=== PATIENT | female | born 1945 | race African-American/Black ===

== ENCOUNTER 2017-04-17 06:59 | Outpatient (CLI) | payer MEDICARE, BC | END 2017-04-17 07:00 | disposition home or self-care (01) | LOC: BICMRI 06:59 | PROVIDERS: ATTEND Family Medicine | DX: M54.31 Sciatica, right side (principal); M51.26 Other intervertebral disc displacement, lumbar region; M48.061 Spinal stenosis, lumbar region without neurogenic claudication | CPT/HCPCS: 72148 ==

== ENCOUNTER 2017-06-24 09:17 | Outpatient (CLI) | payer MEDICARE, BC ==
--- NOTE | 2017-06-24 10:25 | RAD ---
LUMBAR SPINE 3 VIEWS: Lateral views were obtained in neutral, flexion, and extension positions. FINDINGS: Lumbar vertebrae maintain height. There is loss of disk space at L4-5 and L5-S1. There is a mild gr rona I anterior spinal fusion at L4-5 Very mild osteophytes are seen from the lumbar vertebrae. Very mild facet hypertrophy. IMPRESSION: Loss of disk space at L4-5 and L5-S1 and a mild grade I anterolisthesis at L4-5 which does not appear to significantly change with flexion or extension. POS: CRISTO
== END 2017-06-24 09:18 | disposition home or self-care (01) ==
LOC: TBSIIMAG 09:17
PROVIDERS: ATTEND Surgery
DX: M54.5 Low back pain (principal); M54.16 Radiculopathy, lumbar region; M48.061 Spinal stenosis, lumbar region without neurogenic claudication; M43.16 Spondylolisthesis, lumbar region
CPT/HCPCS: 72100

== ENCOUNTER 2017-07-29 09:17 | Outpatient (CLI) | payer MEDICARE, BC | END 2017-07-29 09:18 | disposition home or self-care (01) | LOC: BICMAMMO 09:17 | PROVIDERS: ATTEND Family Medicine | DX: Z12.31 Encounter for screening mammogram for malignant neoplasm of breast (principal) | CPT/HCPCS: 77063; 77067 ==

== ENCOUNTER 2018-08-04 10:16 | Outpatient (CLI) | payer MEDICARE, BC ==
--- NOTE | 2018-08-04 13:22 | MMO ---
Bilateral MAMMO Bilat Screen [facility]. CLINICAL HISTORY: Patient is 73 years old and is seen for screening. The patient has no family history of breast cancer. The patient has no personal history of cancer. VIEWS: The views performed were: bilateral craniocaudal with tomosynthesis and bilateral mediolateral oblique with tomosynthesis. FILMS COMPARED: The present examination has been compared to prior imaging studies performed at [facility] on 06/01/1998, 06/03/1999, 06/07/2000, 06/27/2001, 07/16/2011, 07/16/2012, 07/17/2013, 07/20/2014, 07/25/2015, 07/26/2016 and 07/29/2017. MAMMOGRAM FINDINGS: There are scattered fibroglandular densities. There are stable benign appearing calcifications seen in both breasts. There are no suspicious masses, suspicious calcifications, or new areas of architectural distortion. IMPRESSION: THERE IS NO MAMMOGRAPHIC EVIDENCE OF MALIGNANCY. A ROUTINE FOLLOW-UP MAMMOGRAM IN 1 YEAR IS RECOMMENDED. THE RESULTS OF THIS EXAM WERE SENT TO THE PATIENT. ACR BI-RADS Category 2 - Benign finding MAMMOGRAPHY NOTE: 1. A negative mammogram report should not delay a biopsy if a dominant of clinically suspicious mass is present. 2. Approximately 10% to 15% of breast cancers are not detected by mammography. 3. Adenosis and dense breasts may obscure an underlying neoplasm.
== END 2018-08-04 10:17 | disposition home or self-care (01) ==
LOC: BICMAMMO 10:16
PROVIDERS: ATTEND Family Medicine
DX: Z12.31 Encounter for screening mammogram for malignant neoplasm of breast (principal)
CPT/HCPCS: 77063; 77067

== ENCOUNTER 2019-08-04 21:51 | Emergency (ER) | payer MEDICARE, BC, OTHER ==
--- NOTE | 2019-08-04 22:42 | RAD ---
PORTABLE CHEST: 08/04/19 PROVIDED CLINICAL HISTORY: Cough and bodyaches. Cardiac and mediastinal silhouette is within normal limits. No focal consolidation, pleural fluid, or pneumothorax apparent. IMPRESSION: No evidence for acute cardiopulmonary process. POS: SERA
[2019-08-04 23:04] LABS: Bilirubin Negative (Negative); Blood, Urine Negative (Negative); Clarity Clear (Clear); Glucose, Urine (Dipstick) Normal (Negative); Leukocyte 75 Leu/uL (Negative); Mucous/LPF Rare LPF (<2+); Nitrite Negative (Negative); Protein, Urine (Dipstick) 100 mg/dL (Neg-Trace); Squamous Epithelial 0-3 HPF (0-3)
[2019-08-04 23:06] LABS: #Lymphocytes 1.4 thou/uL (1.20-3.40); #Monocytes 0.6 thou/uL (0.11-0.59); #Neutrophils 6.3 thou/uL (1.40-6.50); %Basophils 0.3 % (0.0-1.0); %Eosinophils 0.2 % (0.0-10.0); %Lymphocytes 16.8 % (21.0-51.0); %Monocytes 7.4 % (0.0-10.0); %Neutrophils 75.3 % (42.0-75.0); Hemoglobin 16.4 g/dL (12.0-16.0); Mean Corpuscular HGB CONC 32.7 g/dL (32.0-36.0); Mean Corpuscular Hemoglobin 33.2 pg (27.0-31.0); Mean Platelet Volume 9.1 fL (7.4-10.4); Platelet Count 193 thou/uL (130-400); RBC Distribution Width 11.6 % (11.5-14.5); Red Blood Cell (RBC) Count 4.94 mill/uL (4.20-5.40); White Blood Cell (WBC) Count 8.3 thou/uL (4.8-10.8)
[2019-08-04 23:12] LABS: Bacteria/HPF Rare-Few HPF (None Seen)
[2019-08-04 23:26] LABS: ALT (SGPT) 63 U/L (8-55); AST (SGOT) 87 U/L (5-34); Albumin 3.3 g/dL (3.4-4.8); Alkaline Phosphatase 84 U/L (40-110); Anion Gap 16 mmol/L (10-20); BUN (Urea Nitrogen) 29 mg/dL (9.8-20.1); Bilirubin, Total 0.9 mg/dL (0.2-1.2); Calc. Creatinine Clearance 0 mL/min (70-130); Calcium 8.9 mg/dL (7.8-10.44); Carbon Dioxide 21 mmol/L (23-31); Chloride 102 mmol/L (98-107); Estimated GFR-MDRD 58; Globulin 3.9 g/dL (2.4-3.5); Glucose 169 mg/dL (83-110); Lipase 22 U/L (8-78); Potassium 4.7 mmol/L (3.5-5.1); Protein, Total 7.2 g/dL (6.0-8.3); Sodium 134 mmol/L (136-145)
== END 2019-08-05 00:35 | disposition home or self-care (01) ==
LOC: ERS 21:51
DX: J06.9 Acute upper respiratory infection, unspecified (principal); Z03.818 Encounter for observation for suspected exposure to other biological agents ruled out; N39.0 Urinary tract infection, site not specified; E10.9 Type 1 diabetes mellitus without complications; I10 Essential (primary) hypertension
CPT/HCPCS: 71045; 80053; 83605; 83690; 85025; 87040; 87081; 87430; 87804 ×2; 96360; 99284; U0002; 36415; 81003; 81015; 87635